=== PATIENT | female | born 1980 | race African-American/Black ===

== ENCOUNTER 2025-07-28 11:35 | Emergency (ER) | payer OTHER | END 2025-07-28 12:15 | disposition home or self-care (01) | LOC: CC.ED 11:35 | DX: S63.91XA Sprain of unspecified part of right wrist and hand, initial encounter (principal); X50.0XXA Overexertion from strenuous movement or load, initial encounter; Y93.89 Activity, other specified; Y99.0 Civilian activity done for income or pay | CPT/HCPCS: 73130-RT; 99283 ==